=== PATIENT | male | born 1985 | race Caucasian/White ===

== ENCOUNTER 2016-12-15 20:16 | Emergency (ER) | payer BC ==
[2016-12-15 20:32] VITALS: BP 130/76
[2016-12-15] MEDS ORDERED: Acetaminophen/HYDROcodone 325-5 MG Tab ONE (21:00)
[2016-12-15] MEDS ORDERED: predniSONE 10 MG Tab ONE (21:00)
--- NOTE | 2016-12-15 21:32 | EDM.PDOC ---
ED HPI GENERAL MEDICAL PROBLEM - General Chief Complaint: General Stated Complaint: BACK PAIN Time Seen by Provider: 12/15/16 20:46 Source of Information: Reports: Patient History Limitations: Reports: No Limitations - History of Present Illness INITIAL COMMENTS - FREE TEXT/NARRATIVE: This is a 31yo M here for acute mid upper back pain with tingling of the right last 2 fingers. Patient states his arm feels weaker but has already improved greatly by the time he came in. He said that he has had this issue in the past but not as severe. He flew into town in his plane and was planning to only stay another week. He has difficulty with any movement and cannot get in a good position. Onset: Sudden Duration: Hour(s): Location: Reports: Back Quality: Reports: Stabbing Severity: Severe Improves with: Reports: None Worsens with: Reports: Movement Associated Symptoms: Reports: No Other Symptoms Upper Back Pain Score (Numeric/FACES): 8 - Related Data Allergies Allergy/AdvReac Type Severity Reaction Status Date / Time amoxicillin Allergy Cannot Verified 12/15/16 20:19 Remember Sulfa (Sulfonamide Allergy Cannot Verified 12/15/16 20:19 Antibiotics) Remember Home Meds: Home Meds NK [No Known Home Meds] 12/15/16 [History] Past Medical History Musculoskeletal History: Reports: Back Pain, Chronic Neurological History: Reports: Migraines Psychiatric History: Reports: ADD Hematologic History: Reports: Anemia - Past Surgical History Musculoskeletal Surgical History: Reports: Arthroscopic Knee Social & Family History - Family History Family Medical History: Noncontributory - Tobacco Use Smoking Status *Q: Never Smoker Second Hand Smoke Exposure: No - Caffeine Use Caffeine Use: Reports: Coffee - Recreational Drug Use Recreational Drug Use: No ED ROS GENERAL - Review of Systems Review Of Systems: ROS reveals no pertinent complaints other than HPI. ED EXAM, GENERAL - Physical Exam Exam: See Below Exam Limited By: No Limitations General Appearance: Alert, WD/WN, Moderate Distress Eye Exam: Bilateral Eye: EOMI, PERRL Ears: Normal External Exam Nose: Normal Inspection Throat/Mouth: Normal Inspection Head: Atraumatic, Normocephalic Neck: Normal Inspection Respiratory/Chest: No Respiratory Distress, Lungs Clear, Normal Breath Sounds, No Accessory Muscle Use, Chest Non-Tender Cardiovascular: Normal Peripheral Pulses, Regular Rate, Rhythm Peripheral Pulses: 2+: Dorsalis Pedis (L), Dorsalis Pedis (R) GI/Abdominal: Normal Bowel Sounds Back Exam: Normal Inspection Extremities: Normal Inspection Neurological: Alert, Oriented, Sensory/Motor Deficit Psychiatric: Normal Affect, Normal Mood Skin Exam: Warm, Dry, Intact Course - Vital Signs Last Recorded V/S: Last Vital Signs Temp 37.3 C 12/15/16 20:33 Pulse 67 12/15/16 20:33 Resp 20 12/15/16 20:33 BP 130/76 12/15/16 20:33 Pulse Ox 96 12/15/16 20:33 - Orders/Labs/Meds Meds: Medications Discontinued Medications Generic Name Dose Route Start Last Admin Trade Name Denilson PRN Reason Stop Dose Admin Hydrocodone Bitart/Acetaminophen 10 tab 12/15/16 21:00 [place] 325-5 Mg .ROUTE 12/15/16 21:01 .STK-MED ONE Prednisone 150 mg 12/15/16 21:00 Prednisone .ROUTE 12/15/16 21:01 .STK-MED ONE Departure - Departure Time of Disposition: 21:30 Disposition: Home, Self-Care 01 Condition: Good Clinical Impression: Back pain Qualifiers: Back pain location: thoracic back pain Chronicity: acute Back pain laterality: left Qualified Code(s): M54.6 - Pain in thoracic spine - Discharge Information Instructions: Back Pain, Adult, Back Exercises, Prednisone tablets Forms: ED Department Discharge Additional Instructions: Begin taking provider Prednisone as directed: 5 tablets by mouth daily for 7 days. Be sure to take with food to avoid upset stomach from Prednisone use. 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 Take 800mg Ibuprofen every 8 hours around the clock for pain. May alternate with Tylenol for additional pain relief. May also apply warm pack or cold pack to affected area to help with pain as well. No pushing, pulling or lifting. May perform light activity as tolerated. Follow up with regular provider when you return home for further treatment and need for MRI. Call with any questions.
== END 2016-12-15 21:15 | disposition home or self-care (01) ==
LOC: LB.ED 20:16
DX: M54.6 Pain in thoracic spine (principal); G43.909 Migraine, unspecified, not intractable, without status migrainosus; D64.9 Anemia, unspecified; Z88.1 Allergy status to other antibiotic agents; Z88.2 Allergy status to sulfonamides; Z98.890 Other specified postprocedural states; F98.8 Other specified behavioral and emotional disorders with onset usually occurring in childhood and adolescence
CPT/HCPCS: 99283; A9270